=== PATIENT | female | born 1985 | race Caucasian/White ===

== ENCOUNTER 2025-02-08 19:58 | Emergency (ER) | payer SELFPAY ==
[~2025-02-08] VITALS: Ht 160 cm; Wt 59.0 kg
[2025-02-08 20:00] VITALS: O2SAT 99
[2025-02-08] MEDS: ACETAMINOPHEN 500MG TABLET PO ONE (21:12)
[2025-02-08] MEDS: IBUPROFEN 400MG TABLET PO ONE (21:47)
[2025-02-08] MEDS ORDERED: LIDO-53 TP (22:13)
[2025-02-08] MEDS ORDERED: NAPR-1176 MT (22:13)
[2025-02-08 23:10] VITALS: BP 125/83; PULSE 60; RESP 18; TEMP 37.1; O2SAT 100
== END 2025-02-08 23:12 | disposition home or self-care (01) ==
LOC: ER 19:58
DX: S92.332A Displaced fracture of third metatarsal bone, left foot, initial encounter for closed fracture (principal); S92.342A Displaced fracture of fourth metatarsal bone, left foot, initial encounter for closed fracture; Z88.5 Allergy status to narcotic agent; W01.0XXA Fall on same level from slipping, tripping and stumbling without subsequent striking against object, initial encounter; Y93.89 Activity, other specified; Y92.89 Other specified places as the place of occurrence of the external cause; Y99.8 Other external cause status
CPT/HCPCS: 99283; 29515; 73630; A6449